=== PATIENT | male | born 2000 | race Hispanic/Latino ===

== ENCOUNTER 2022-04-12 09:45 | Emergency (ER) | payer SELFPAY ==
[2022-04-12] MEDS ORDERED: Lidocaine 1% w/Epinephrine 1:100K 20 ML VIAL ONE (11:35)
== END 2022-04-12 12:44 | disposition home or self-care (01) ==
LOC: CSHERS 09:45
DX: S81.812A Laceration without foreign body, left lower leg, initial encounter (principal); X58.XXXA Exposure to other specified factors, initial encounter
CPT/HCPCS: 12032

== ENCOUNTER 2022-04-25 15:28 | Emergency (ER) | payer SELFPAY | END 2022-04-25 17:31 | disposition home or self-care (01) | LOC: CSHERS 15:28 | DX: L03.116 Cellulitis of left lower limb (principal); S81.812D Laceration without foreign body, left lower leg, subsequent encounter ==